=== PATIENT | female | born 1955 | race Caucasian/White ===

== ENCOUNTER → 2017-02-05 | Outpatient (CLI) | payer OTHER, BC ==
[~2017-02-05] MED LIST: SYNTHROID0.112 MG/T PO
== END ==
LOC: MC.RAD 07:00
DX: Z12.31 Encounter for screening mammogram for malignant neoplasm of breast (principal); R92.8 Other abnormal and inconclusive findings on diagnostic imaging of breast; Z80.3 Family history of malignant neoplasm of breast

== ENCOUNTER → 2017-02-08 | Outpatient (CLI) | payer OTHER, BC | LOC: MC.RAD 14:00 | DX: R92.8 Other abnormal and inconclusive findings on diagnostic imaging of breast (principal); Z80.3 Family history of malignant neoplasm of breast ==

== ENCOUNTER → 2018-02-15 | Outpatient (CLI) | payer BC | LOC: MC.RAD 08:19 | DX: Z12.31 Encounter for screening mammogram for malignant neoplasm of breast (principal) ==

== ENCOUNTER → 2019-02-21 | Outpatient (CLI) | payer BC | LOC: MC.RAD 08:42 | DX: Z12.31 Encounter for screening mammogram for malignant neoplasm of breast (principal) ==

== ENCOUNTER 2019-04-04 07:18 | Day surgery (SDC) | payer BC ==
[~2019-04-04] VITALS: Ht 162.6 cm; Wt 87.0 kg
[~2019-04-04 07:18] MED LIST changes: -SYNTHROID0.112 MG/T PO; +SYNTHROID0.125 MG/T PO
[2019-04-04] MEDS ORDERED: PROTONIX 40MG T40 MG PO (07:31)
[2019-04-04 07:53] VITALS: BP 149/80; PULSE 70; TEMP 97.6
[2019-04-04 09:00] VITALS: BP 136/83; PULSE 64; TEMP 97.2
[2019-04-04 09:15] VITALS: BP 132/80; PULSE 70
[2019-04-04 09:30] VITALS: BP 120/65; PULSE 57
--- NOTE | 2019-04-04 09:30 | NUR ---
TOLERATED FOOD AND DRINK. IV DC'D. CALL LIGHT IN REACH.
[2019-04-04 09:45] VITALS: BP 122/68; PULSE 60; TEMP 98.2
--- NOTE | 2019-04-04 09:46 | NUR ---
PATIENT ARRIVES BY CART FROM OR TO BAY 2. STEADY GAIT TO CHAIR. AT BEDSIDE. VS STARTED. GAVE CHOCOLATE PUDDING AND WATER. CALL LIGT IN REACH. WILL CONTINUE TO MONITOR.
--- NOTE | 2019-04-04 09:55 | NUR ---
DISCHARGE INSTRUCTIONS GIVEN, VERBALIZED UNDERSTANDING. DECLINED WHEELCHAIR, AMBULATED TO CAR, ESCORTED BY THIS NURSE.
[2019-04-04 11:30] VITALS: BP 141/69; PULSE 64
== END 2019-04-04 09:55 | disposition home or self-care (01) ==
LOC: SDCO 07:18
DX: K21.0 Gastro-esophageal reflux disease with esophagitis (principal); K44.9 Diaphragmatic hernia without obstruction or gangrene; J44.9 Chronic obstructive pulmonary disease, unspecified; K92.1 Melena; K59.00 Constipation, unspecified; E78.00 Pure hypercholesterolemia, unspecified; Z86.010 Personal history of colon polyps; Z90.710 Acquired absence of both cervix and uterus
CPT/HCPCS: J2250; J3010; J7030

== ENCOUNTER → 2020-03-22 | Outpatient (CLI) | payer BC ==
[~2020-03-22] MED LIST changes: +PROTONIX 40MG T40 MG PO
== END ==
LOC: MC.RAD 02-23 08:30
DX: Z12.31 Encounter for screening mammogram for malignant neoplasm of breast (principal)

== ENCOUNTER → 2021-03-24 | Outpatient (CLI) | payer BC | LOC: MC.RAD 07:00 | DX: Z12.31 Encounter for screening mammogram for malignant neoplasm of breast (principal) ==

== ENCOUNTER → 2022-03-27 | Outpatient (CLI) | payer BC | LOC: MC.RAD 08:54 | DX: Z12.31 Encounter for screening mammogram for malignant neoplasm of breast (principal) ==

== ENCOUNTER 2022-05-14 18:59 | Emergency (ER) | payer BC ==
[~2022-05-14] VITALS: Ht 160 cm; Wt 84.1 kg
[2022-05-14 20:12] VITALS: BP 139/75; PULSE 66; TEMP 97.9
== END 2022-05-14 20:09 | disposition home or self-care (01) ==
LOC: COL.ER 18:59
DX: S01.21XA Laceration without foreign body of nose, initial encounter (principal); W01.0XXA Fall on same level from slipping, tripping and stumbling without subsequent striking against object, initial encounter; Y93.01 Activity, walking, marching and hiking; Y92.090 Kitchen in other non-institutional residence as the place of occurrence of the external cause